=== PATIENT | female | born 2000 | race Hispanic/Latino ===

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

== ENCOUNTER 2021-12-02 22:46 | Observation (INO) | payer SELFPAY ==
[2021-12-03 00:02] LABS: #Lymphocytes 3.3 thou/uL (1.20-3.40); #Monocytes 0.9 thou/uL (0.11-0.59); #Neutrophils 8.4 thou/uL (1.40-6.50); %Basophils 0.2 % (0.0-1.0); %Eosinophils 0.4 % (0.0-10.0); %Lymphocytes 25.9 % (28.0-48.0); %Neutrophils 66.5 % (31.0-61.0); Hemoglobin 13.7 g/dL (12.0-16.0); Mean Corpuscular HGB CONC 32.1 g/dL (32.0-36.0); Mean Corpuscular Volume 90.5 fL (78.0-98.0); Mean Platelet Volume 7.6 fL (7.4-10.4); Platelet Count 278 thou/uL (130-400); RBC Distribution Width 11.9 % (11.5-14.5); Red Blood Cell (RBC) Count 4.72 mill/uL (4.00-5.20); White Blood Cell (WBC) Count 12.6 thou/uL (4.8-10.8)
[2021-12-03 00:26] LABS: ALT (SGPT) 13 U/L (8-55); AST (SGOT) 14 U/L (5-34); Albumin 4.4 g/dL (3.5-5.0); Alkaline Phosphatase 72 U/L (40-100); Anion Gap 12 mmol/L (10-20); BUN (Urea Nitrogen) 11 mg/dL (7.0-18.7); Bilirubin, Total 0.4 mg/dL (0.2-1.2); Calc. Creatinine Clearance 0 mL/min (70-130); Calcium 9.5 mg/dL (7.8-10.44); Carbon Dioxide 26 mmol/L (22-29); Chloride 103 mmol/L (98-107); Estimated GFR 103; Globulin 3.2 g/dL (2.4-3.5); Glucose 106 mg/dL (70-105); Lipase 35 U/L (8-78); Potassium 3.7 mmol/L (3.5-5.1); Protein, Total 7.6 g/dL (6.0-8.3); Sodium 137 mmol/L (136-145)
[2021-12-03 01:58] LABS: Bacteria/HPF None Seen HPF (None Seen); Bilirubin Negative (Negative); Blood, Urine Negative (Negative); Clarity Clear (Clear); Glucose, Urine (Dipstick) Normal (Negative); Ketone, Urine Negative (Negative); Leukocyte 250 Leu/uL (Negative); Nitrite Negative (Negative); Pregnancy Test - Urine (BHCG) Negative (Negative); Pregu Control Background? CLEAR/WHITE (CLR/WHITE); Pregu Control Bar Appear? YES (CONTROL BAR); Protein, Urine (Dipstick) Negative (Neg-Trace); RBC/HPF 0-3 HPF (0-3); Squamous Epithelial 0-3 HPF (0-3); Urobilinogen Normal mg/dL (Less than 2); WBC/HPF 21-50 HPF (0-3); pH, Urine 6.5 (5.0-9.0)
[2021-12-03] MEDS ORDERED: Lidocaine Viscous Sol 2% 15 ml UD Cup ONE (03:28)
[2021-12-03] MEDS ORDERED: Mag-Al 1200 mg/1200 mg/30 ML UDCUP ONE (03:28)
[2021-12-03] MEDS ORDERED: Piperacillin/Tazobactam 3.375 GM VIAL ONE (07:42)
[2021-12-03] MEDS ORDERED: Ondansetron PF 4 MG/2 ML Vial ONE ×2 (07:42→09:41)
[2021-12-03] MEDS ORDERED: Morphine 4 MG/ML VIAL ONE (07:42)
[2021-12-03] MEDS ORDERED: EPINEPHrine 1 MG/ML AMP ONE (09:09)
[2021-12-03] MEDS ORDERED: Bupivacaine 0.25% HCL 30 ML VIAL ONE (09:09)
[2021-12-03] MEDS ORDERED: fentaNYL Citrate/PF 100 MCG/2 ML SYRINGE ONE ×2 (09:17→11:01)
[2021-12-03] MEDS ORDERED: Midazolam HCl 2 mg/2 ml Vial ONE (09:20)
[2021-12-03] MEDS ORDERED: Glycopyrrolate 0.2 MG/ML 5 ML SYRINGE ONE (09:41)
[2021-12-03] MEDS ORDERED: PROPOFOL 200 MG/20 ML VIAL ONE (09:41)
[2021-12-03] MEDS ORDERED: Succinylcholine 200 MG/10 ml SYRINGE FS ONE (09:41)
[2021-12-03] MEDS ORDERED: Rocuronium Bromide 10 MG/ML (10ML VIAL) ONE (09:41)
[2021-12-03] MEDS ORDERED: NEOSTIGMINE 3 MG/3 ML SYR 3 MG/3 ML SYRINGE ONE (09:41)
[2021-12-03] MEDS ORDERED: Fentanyl 100 MCG/2 ML VIAL ONE (11:40)
[2021-12-03] MEDS ORDERED: Iopamidol-370 76% 500 ML 1 ML ONE (12:01)
[2021-12-03] MEDS ORDERED: HYDROcodone/Acetaminophen 5/325 mg Tablet ONE (12:19)
[2021-12-03] MEDS ORDERED: Ondansetron PF 4 MG/2 ML Vial IVP PRN (14:02)
[2021-12-03] MEDS ORDERED: traMADol HCl 50 MG TAB PO PRN (14:04)
[2021-12-03] MEDS ORDERED: Cyclobenzaprine 10 MG TAB PO PRN (14:05)
[2021-12-03] MEDS ORDERED: Ibuprofen 100 MG/5 ML UDCUP ONE (14:16)
[2021-12-03] MEDS ORDERED: TETANUS, DIPHTHERIA TOX,ADULT (TDVAX) 0.5 ML VIAL IM ONE (15:00)
[2021-12-03 15:13] LABS: SARS-CoV-2 NAA Rapid Test Not Detected (NotDetected)
[2021-12-03] MEDS ORDERED: Ibuprofen 200 MG TAB PO PRN (15:14)
[2021-12-03] MEDS ORDERED: Ibuprofen 200 MG TAB PO SCH (16:00)
[2021-12-03 16:42] VITALS: BMI 34.0
[2021-12-03] MEDS ORDERED: Ibuprofen 600 MG TAB PO SCH (18:00)
[2021-12-03] MEDS ORDERED: traMADol HCl 50 MG TAB PO SCH (18:00)
[2021-12-03] MEDS ORDERED: Acetaminophen 500 MG TAB PO SCH ×2 (18:00)
[2021-12-03 18:10] VITALS: BP 122/65; TEMP 98
[2021-12-03] MEDS ORDERED: Famotidine 20 MG TAB PO SCH (21:00)
[2021-12-03] MEDS ORDERED: Amoxicillin/Potassium Clav 875 MG TAB PO SCH (21:00)
[2021-12-04] MEDS ORDERED: Saccharomyces boulardii 250 MG CAP PO SCH (09:00)
== END 2021-12-03 18:35 | disposition home or self-care (01) ==
LOC: ERS 22:46 → SDC 12-03 08:51 → SJJU 12-03 14:54
PROVIDERS: ADMIT Surgery; ATTEND Surgery
PROC: 0DTJ4ZZ Resection of Appendix, Percutaneous Endoscopic Approach (ICD-10-PCS; principal; 2021-12-03)
DX: K35.33 Acute appendicitis with perforation, localized peritonitis, and gangrene, with abscess (principal); N83.201 Unspecified ovarian cyst, right side; N83.202 Unspecified ovarian cyst, left side; Z91.018 Allergy to other foods; Z20.822 Contact with and (suspected) exposure to COVID-19
CPT/HCPCS: 36415; 74177; 76856; 80053; 81003; 81015; 81025; 83690; 85025; 87086; 88304; 96365; 96375; J0171; J2250; J2270; J2405; J2543; J2704; J3010; Q9967; S0020; U0002

== ENCOUNTER 2021-12-08 17:39 | Emergency (ER) | payer SELFPAY ==
[~2021-12-08 17:39] MED LIST: Iopamidol-370 76% 500 ML 1 ML ONE
[2021-12-08 18:10] LABS: Hemoglobin 14.2 g/dL (12.0-16.0); Mean Corpuscular HGB CONC 31.5 g/dL (32.0-36.0); Mean Corpuscular Hemoglobin 28.5 pg (25.0-35.0); Mean Corpuscular Volume 90.4 fl (78.0-98.0); Mean Platelet Volume 7.5 fL (7.4-10.4); Platelet Count 365 thou/uL (130-400); White Blood Cell (WBC) Count 15.5 thou/uL (4.8-10.8)
[2021-12-08 18:26] LABS: ALT (SGPT) 42 U/L (8-55); AST (SGOT) 28 U/L (5-34); Albumin 4.4 g/dL (3.5-5.0); Alkaline Phosphatase 101 U/L (40-100); Anion Gap 15 mmol/L (10-20); BUN (Urea Nitrogen) 12 mg/dL (7.0-18.7); Bilirubin, Total 0.6 mg/dL (0.2-1.2); Calc. Creatinine Clearance 0 mL/min (70-130); Calcium 9.8 mg/dL (7.8-10.44); Carbon Dioxide 26 mmol/L (22-29); Chloride 99 mmol/L (98-107); Estimated GFR 94; Globulin 3.6 g/dL (2.4-3.5); Glucose 95 mg/dL (70-105); Potassium 4.1 mmol/L (3.5-5.1); Sodium 136 mmol/L (136-145)
[2021-12-08 18:30] LABS: Band 3 % (5-11); Eosinophils 1 % (0-10); Lymphocytes 21 % (28-48); MDiff Complete? YES; Monocytes 5 % (0-4); Neutrophil 70 % (31-61); Platelet Morphology Comment Appears Adequate; RBC Morphology Normal
[2021-12-08] MEDS ORDERED: Morphine 4 MG/ML VIAL ONE (18:47)
[2021-12-08] MEDS ORDERED: Ondansetron PF 4 MG/2 ML Vial ONE (18:47)
[2021-12-08] MEDS ORDERED: Piperacillin/Tazobactam 3.375 GM VIAL ONE (18:47)
[2021-12-08] MEDS ORDERED: Vancomycin 1.5 GRAM/300 ML BAG 1.5 GM in Premix Bag 1 BAG IVPB SCH (19:15)
[2021-12-08] MEDS ORDERED: Lidocaine 1% MPF 2 ML VIAL ONE (21:34)
[2021-12-08 21:51] LABS: Bilirubin Negative (Negative); Blood, Urine Negative (Negative); Clarity Clear (Clear); Glucose, Urine (Dipstick) Normal (Negative); Ketone, Urine Negative (Negative); Leukocyte 75 Leu/uL (Negative); Nitrite Negative (Negative); Protein, Urine (Dipstick) Negative (Neg-Trace); RBC/HPF 0-3 HPF (0-3); Renal Epithelial 0-3 HPF (None Seen); Specific Gravity, Urine 1.047 (1.002-1.036); Urobilinogen Normal mg/dL (Less than 2); pH, Urine 6.5 (5.0-9.0)
[2021-12-08 21:52] LABS: Bacteria/HPF Rare-Few HPF (None Seen)
== END 2021-12-08 23:10 | disposition home or self-care (01) ==
LOC: ERS 17:39
DX: T81.49XA Infection following a procedure, other surgical site, initial encounter (principal); Z79.899 Other long term (current) drug therapy
CPT/HCPCS: 74177; 80053; 81003; 81015; 83605; 85025; 87040; 96365; 96366; 96367; 96375; J2270; J2405; J2543; J3370; Q9967

== ENCOUNTER 2021-12-12 20:09 | Inpatient (IN) | payer SELFPAY ==
[2021-12-12] MEDS ORDERED: Acetaminophen 500 MG TAB ONE (20:35)
[2021-12-12] MEDS ORDERED: Ondansetron PF 4 MG/2 ML Vial ONE (20:35)
[2021-12-12 21:06] LABS: #Eosinphils 0.2 thou/uL (0.0-0.7); #Lymphocytes 2.7 thou/uL (1.20-3.40); #Monocytes 0.7 thou/uL (0.11-0.59); #Neutrophils 10.7 thou/uL (1.40-6.50); %Basophils 0.1 % (0.0-1.0); %Eosinophils 1.1 % (0.0-10.0); %Monocytes 4.9 % (0.0-4.0); %Neutrophils 74.9 % (31.0-61.0); Hemoglobin 12.6 g/dL (12.0-16.0); Mean Corpuscular HGB CONC 32.6 g/dL (32.0-36.0); Mean Corpuscular Hemoglobin 29.3 pg (25.0-35.0); Mean Corpuscular Volume 89.8 fl (78.0-98.0); Mean Platelet Volume 7.1 fL (7.4-10.4); Platelet Count 414 thou/uL (130-400); RBC Distribution Width 11.9 % (11.5-14.5); Red Blood Cell (RBC) Count 4.29 mill/uL (4.00-5.20); White Blood Cell (WBC) Count 14.3 thou/uL (4.8-10.8)
[2021-12-12 21:08] LABS: Bilirubin Negative (Negative); Blood, Urine Negative (Negative); Clarity Clear (Clear); Glucose, Urine (Dipstick) Normal (Negative); Ketone, Urine Negative (Negative); Leukocyte Negative Leu/uL (Negative); Nitrite Negative (Negative); Protein, Urine (Dipstick) Negative (Neg-Trace); Specific Gravity, Urine 1.009 (1.002-1.036); Urobilinogen Normal mg/dL (Less than 2)
[2021-12-12] MEDS ORDERED: Ketorolac Tromethamine 30 MG/ML VIAL ONE (21:16)
[2021-12-12 21:17] LABS: BHCG - Serum Negative (NEGATIVE); Pregs Control Bar Appear? YES (CONTROL BAR)
[2021-12-12 21:18] LABS: Pregs Control Background? CLEAR/WHITE (CLR/WHITE)
[2021-12-12 21:21] LABS: ALT (SGPT) 71 U/L (8-55); AST (SGOT) 40 U/L (5-34); Albumin 3.5 g/dL (3.5-5.0); Alkaline Phosphatase 96 U/L (40-100); Anion Gap 12 mmol/L (10-20); BUN (Urea Nitrogen) 10 mg/dL (7.0-18.7); Bilirubin, Total 0.3 mg/dL (0.2-1.2); Calc. Creatinine Clearance 0 mL/min (70-130); Calcium 8.6 mg/dL (7.8-10.44); Carbon Dioxide 24 mmol/L (22-29); Chloride 104 mmol/L (98-107); Estimated GFR 107; Globulin 3.6 g/dL (2.4-3.5); Glucose 88 mg/dL (70-105); Potassium 3.8 mmol/L (3.5-5.1); Protein, Total 7.1 g/dL (6.0-8.3); Sodium 136 mmol/L (136-145)
[2021-12-12] MEDS ORDERED: Piperacillin/Tazobactam 3.375 GM VIAL ONE (22:50)
[2021-12-12] MEDS ORDERED: Morphine 4 MG/ML VIAL ONE (22:50)
[2021-12-12 23:22] LABS: SARS-CoV-2 NAA Rapid Test Not Detected (NotDetected)
[2021-12-12] MEDS ORDERED: Vancomycin 1 GM/200 ML BAG ONE (23:28)
[2021-12-13] MEDS ORDERED: Morphine 4 MG/ML VIAL SLOW IVP PRN ×2 (02:48→06:11)
[2021-12-13] MEDS ORDERED: Ketorolac Tromethamine 30 MG/ML VIAL IVP PRN (02:48)
[2021-12-13 02:54] VITALS: BMI 30.9
[2021-12-13] MEDS ORDERED: Sodium Chloride 0.9% 1,000 ML IV SCH (03:00)
[2021-12-13] MEDS ORDERED: Ondansetron ODT 4 MG TAB SL PRN (03:00)
[2021-12-13] MEDS ORDERED: Ondansetron PF 4 MG/2 ML Vial IVP PRN (03:00)
[2021-12-13] MEDS ORDERED: Acetaminophen 325 MG TAB PO PRN (03:00)
[2021-12-13] MEDS: Piperacillin/Tazobactam 3.375 GM in Sodium Chloride 0.9% 100 ML IVPB SCH ×4 (03:19→21:07)
[2021-12-13] MEDS ORDERED: TETANUS, DIPHTHERIA TOX,ADULT (TDVAX) 0.5 ML VIAL IM ONE (06:06)
[2021-12-13] MEDS ORDERED: Dextrose 50% Abboject 50 ML SYRINGE SLOW IVP PRN (06:06)
[2021-12-13] MEDS ORDERED: Dextrose 5% in Water 1,000 ML IV PRN (06:06)
[2021-12-13] MEDS ORDERED: traMADol HCl 50 MG TAB PO SCH (06:30)
[2021-12-13] MEDS ORDERED: Lactated Ringer's 1,000 ML IV SCH (06:45)
[2021-12-13 06:56] LABS: #Eosinphils 0.1 thou/uL (0.0-0.7); #Lymphocytes 2.5 thou/uL (1.20-3.40); #Monocytes 0.9 thou/uL (0.11-0.59); #Neutrophils 9.6 thou/uL (1.40-6.50); %Basophils 0.3 % (0.0-1.0); %Eosinophils 0.8 % (0.0-10.0); %Lymphocytes 19.1 % (28.0-48.0); %Monocytes 6.8 % (0.0-4.0); %Neutrophils 73.1 % (31.0-61.0); Hemoglobin 11.9 g/dL (12.0-16.0); Mean Corpuscular HGB CONC 32.3 g/dL (32.0-36.0); Mean Corpuscular Hemoglobin 29.8 pg (25.0-35.0); Mean Corpuscular Volume 92.2 fl (78.0-98.0); Mean Platelet Volume 6.8 fL (7.4-10.4); Platelet Count 378 thou/uL (130-400); RBC Distribution Width 11.8 % (11.5-14.5); Red Blood Cell (RBC) Count 3.99 mill/uL (4.00-5.20); White Blood Cell (WBC) Count 13.2 thou/uL (4.8-10.8)
[2021-12-13 07:05] LABS: Anion Gap 10 mmol/L (10-20); BUN (Urea Nitrogen) 8 mg/dL (7.0-18.7); Calc. Creatinine Clearance 162 mL/min (70-130); Calcium 8.5 mg/dL (7.8-10.44); Carbon Dioxide 26 mmol/L (22-29); Chloride 106 mmol/L (98-107); Estimated GFR 119; Glucose 80 mg/dL (70-105); Magnesium 1.8 mg/dL (1.7-2.2); Phosphorus 3.6 mg/dL (2.3-4.7); Potassium 4.4 mmol/L (3.5-5.1); Sodium 138 mmol/L (136-145)
[2021-12-13] MEDS: Famotidine 20 MG TAB PO SCH ×2 (09:25→21:06)
[2021-12-13] MEDS: traMADol HCl 50 MG TAB PO SCH ×3 (11:33→23:35)
[2021-12-13] MEDS: Acetaminophen 500 MG TAB PO SCH ×3 (11:34→23:35)
[2021-12-13] MEDS: Ibuprofen 200 MG TAB PO SCH ×2 (14:02→21:06)
[2021-12-13] MEDS ORDERED: Milk Of Magnesia 30 ML UDCUP PO SCH (14:15)
[2021-12-13] MEDS: traMADol HCl 50 MG TAB PO PRN (21:05)
[2021-12-13] MEDS: Polyethylene Glycol 3350 17 GM Packet PO SCH (21:07)
[2021-12-14 05:39] LABS: #Eosinphils 0.2 thou/uL (0.0-0.7); #Lymphocytes 2.4 thou/uL (1.20-3.40); #Neutrophils 8.4 thou/uL (1.40-6.50); %Basophils 0.2 % (0.0-1.0); %Eosinophils 1.7 % (0.0-10.0); %Lymphocytes 20.1 % (28.0-48.0); %Monocytes 8.5 % (0.0-4.0); %Neutrophils 69.7 % (31.0-61.0); Hemoglobin 11.1 g/dL (12.0-16.0); Mean Corpuscular HGB CONC 32.5 g/dL (32.0-36.0); Mean Corpuscular Hemoglobin 29.8 pg (25.0-35.0); Mean Corpuscular Volume 91.8 fl (78.0-98.0); Mean Platelet Volume 6.8 fL (7.4-10.4); Platelet Count 381 thou/uL (130-400); RBC Distribution Width 11.9 % (11.5-14.5); Red Blood Cell (RBC) Count 3.72 mill/uL (4.00-5.20)
[2021-12-14] MEDS: Ibuprofen 200 MG TAB PO SCH ×3 (06:27→22:20)
[2021-12-14] MEDS: Acetaminophen 500 MG TAB PO SCH ×4 (06:27→23:29)
[2021-12-14] MEDS: traMADol HCl 50 MG TAB PO SCH ×4 (06:27→22:20)
[2021-12-14] MEDS: Piperacillin/Tazobactam 3.375 GM in Sodium Chloride 0.9% 100 ML IVPB SCH ×3 (06:28→22:20)
[2021-12-14] MEDS: Famotidine 20 MG TAB PO SCH ×2 (08:10→20:54)
[2021-12-14] MEDS: Polyethylene Glycol 3350 17 GM Packet PO SCH ×2 (08:15→20:54)
[2021-12-14] MEDS ORDERED: FLU VACC QS2022-23(6MOS UP)/PF 60 MCG/0.5 ML SYRINGE IM ONE (09:00)
[2021-12-14] MEDS: Ondansetron ODT 4 MG TAB PO PRN (09:21)
[2021-12-14] MEDS: traMADol HCl 50 MG TAB PO PRN (10:40)
[2021-12-14] MEDS ORDERED: Morphine 4 MG/ML VIAL ONE (14:25)
[2021-12-14] MEDS ORDERED: Morphine 4 MG/ML VIAL SLOW IVP PRN (14:27)
[2021-12-15] MEDS: traMADol HCl 50 MG TAB PO SCH ×4 (03:13→21:43)
[2021-12-15] MEDS: Ondansetron PF 4 MG/2 ML Vial IVP PRN ×2 (04:52→11:40)
[2021-12-15] MEDS: Piperacillin/Tazobactam 3.375 GM in Sodium Chloride 0.9% 100 ML IVPB SCH ×2 (05:35→14:28)
[2021-12-15] MEDS: Ibuprofen 200 MG TAB PO SCH ×3 (05:36→21:43)
[2021-12-15] MEDS: Acetaminophen 500 MG TAB PO SCH ×3 (05:36→17:34)
[2021-12-15] MEDS ORDERED: Morphine 2 MG/ML VIAL SLOW IVP SCH (06:00)
[2021-12-15 06:14] LABS: #Eosinphils 0.2 thou/uL (0.0-0.7); #Lymphocytes 2.8 thou/uL (1.20-3.40); #Monocytes 1.1 thou/uL (0.11-0.59); #Neutrophils 11.6 thou/uL (1.40-6.50); %Eosinophils 1.1 % (0.0-10.0); %Monocytes 7.1 % (0.0-4.0); %Neutrophils 73.7 % (31.0-61.0); Hemoglobin 11.6 g/dL (12.0-16.0); Mean Corpuscular HGB CONC 30.7 g/dL (32.0-36.0); Mean Corpuscular Hemoglobin 28.3 pg (25.0-35.0); Mean Corpuscular Volume 92.2 fl (78.0-98.0); Mean Platelet Volume 6.9 fL (7.4-10.4); Platelet Count 450 thou/uL (130-400); Red Blood Cell (RBC) Count 4.11 mill/uL (4.00-5.20); White Blood Cell (WBC) Count 15.7 thou/uL (4.8-10.8)
[2021-12-15] MEDS ORDERED: Morphine 4 MG/ML VIAL SLOW IVP SCH (08:00)
[2021-12-15] MEDS: Sodium Chloride 0.9% 1,000 ML IV SCH ×2 (08:01→17:33)
[2021-12-15 08:04] LABS: Band 8 % (5-11); Lymphocytes 15 % (28-48); Monocytes 5 % (0-4); Reactive Lymphocytes 8 % (0-10)
[2021-12-15 08:06] LABS: Hypochromia SLIGHT = 6-15 cells (100X) (0-5/hpf)
[2021-12-15 08:07] LABS: Platelet Morphology Comment Appears Increased
[2021-12-15 08:09] LABS: Neutrophil 64 % (31-61)
[2021-12-15] MEDS: Ondansetron ODT 4 MG TAB PO PRN (08:21)
[2021-12-15] MEDS ORDERED: Promethazine HCl 12.5 MG in Sodium Chloride 0.9% 50 ML IVPB PRN (08:32)
[2021-12-15] MEDS ORDERED: Scopolamine 1.5 mg/72 hour Patch TD SCH (09:00)
[2021-12-15] MEDS: Famotidine 20 MG TAB PO SCH ×2 (10:20→21:44)
[2021-12-15] MEDS: Polyethylene Glycol 3350 17 GM Packet PO SCH ×2 (10:23→21:42)
[2021-12-15] MEDS: Amoxicillin/Potassium Clav 875 MG TAB PO SCH (21:43)
[2021-12-16] MEDS: Acetaminophen 500 MG TAB PO SCH ×3 (01:40→13:36)
[2021-12-16] MEDS: traMADol HCl 50 MG TAB PO SCH ×3 (02:17→17:02)
[2021-12-16] MEDS: Ibuprofen 200 MG TAB PO SCH ×2 (05:48→13:42)
[2021-12-16 06:32] LABS: #Eosinphils 0.1 thou/uL (0.0-0.7); #Monocytes 0.5 thou/uL (0.11-0.59); #Neutrophils 4.5 thou/uL (1.40-6.50); %Basophils 0.3 % (0.0-1.0); %Eosinophils 1.7 % (0.0-10.0); %Lymphocytes 36.9 % (28.0-48.0); %Monocytes 6.3 % (0.0-4.0); %Neutrophils 54.8 % (31.0-61.0); Hemoglobin 11.5 g/dL (12.0-16.0); Mean Corpuscular HGB CONC 31.9 g/dL (32.0-36.0); Mean Corpuscular Hemoglobin 29.2 pg (25.0-35.0); Mean Corpuscular Volume 91.4 fl (78.0-98.0); Mean Platelet Volume 6.7 fL (7.4-10.4); Platelet Count 496 thou/uL (130-400); RBC Distribution Width 11.9 % (11.5-14.5); Red Blood Cell (RBC) Count 3.93 mill/uL (4.00-5.20); White Blood Cell (WBC) Count 8.2 thou/uL (4.8-10.8)
[2021-12-16] MEDS: Amoxicillin/Potassium Clav 875 MG TAB PO SCH (09:12)
[2021-12-16] MEDS: Famotidine 20 MG TAB PO SCH (09:12)
[2021-12-16] MEDS: Polyethylene Glycol 3350 17 GM Packet PO SCH (09:14)
[2021-12-16 11:25] VITALS: BP 116/80; TEMP 97.8
== END 2021-12-16 15:35 | disposition home or self-care (01) | DRG 862 ==
LOC: ERS 20:09 → SJJU 12-13 01:05
PROVIDERS: ADMIT Specialist; ATTEND Specialist
DX: T81.43XA Infection following a procedure, organ and space surgical site, initial encounter (principal); A41.9 Sepsis, unspecified organism; K65.8 Other peritonitis; Y83.8 Other surgical procedures as the cause of abnormal reaction of the patient, or of later complication, without mention of misadventure at the time of the procedure; K59.00 Constipation, unspecified; Z91.018 Allergy to other foods; Z90.49 Acquired absence of other specified parts of digestive tract
CPT/HCPCS: 36415; 74177; 80048; 80053; 81003; 83605; 83735; 84100; 84703; 85025; 87040; 87086; 96365; 96367; 96375; 97139; J1885; J2270; J2405; J2543; J3370; J3490; J7050; J7120; Q0162; Q9967

== ENCOUNTER 2024-02-06 09:19 | Day surgery (SDC) | payer OTHER ==
[2024-02-06] MEDS ORDERED: Acetaminophen 500 MG TAB ONE (09:27)
[2024-02-06] MEDS: Acetaminophen 500 MG TAB PO SCH (09:28)
[2024-02-06] MEDS: Ferumoxytol (NON ERSD) 510 MG in 0.9 % Sodium Chloride 150 ML IVPB SCH (10:01)
[2024-02-06 14:50] VITALS: BP 118/62; TEMP 98.3
== END 2024-02-06 14:50 | disposition home or self-care (01) ==
LOC: ONC/OP 09:19
PROVIDERS: ATTEND Student in an Organized Health Care Education/Training Program
DX: O99.019 Anemia complicating pregnancy, unspecified trimester (principal); O99.280 Endocrine, nutritional and metabolic diseases complicating pregnancy, unspecified trimester; E83.10 Disorder of iron metabolism, unspecified; Z91.018 Allergy to other foods; Z3A.00 Weeks of gestation of pregnancy not specified
CPT/HCPCS: 96365; 96366; Q0138